=== PATIENT | female | born 1980 | race Hispanic/Latino ===

== ENCOUNTER 2018-04-28 07:45 | Day surgery (SDC) | payer BC ==
[2018-04-22 11:13] VITALS: BMI 51.5
[2018-04-28] MEDS ORDERED: Iohexol 240 (50 ml) ONE (09:11)
[2018-04-28] MEDS ORDERED: Bupivacaine 0.5% 50 ML IJ ONE (09:11)
--- NOTE | 2018-04-28 09:16 | RAD ---
Date of service: 04/28/2018 HISTORY: PRE-OP COMPARISON: No prior. FINDINGS: LUNGS: No active pulmonary disease. PLEURA: No significant pleural effusion identified, no pneumothorax apparent. CARDIOVASCULAR: Normal. OSSEOUS STRUCTURES: No significant abnormalities. VISUALIZED UPPER ABDOMEN: Normal. OTHER FINDINGS: None. IMPRESSION: No active disease.
[2018-04-28] MEDS ORDERED: Propofol 10 mg/ml Inj (20 ML) ONE (09:54)
[2018-04-28] MEDS ORDERED: Midazolam 2 MG/2 ML VIAL ONE (09:55)
[2018-04-28] MEDS ORDERED: Rocuronium 10 mg/ml (5 ml) ONE (09:59)
[2018-04-28] MEDS ORDERED: HYDROmorphone 1 mg/ml ISec IVP PRN (11:00)
[2018-04-28] MEDS ORDERED: Lactated Ringer's 1,000 ML IV SCH (11:00)
[2018-04-28] MEDS ORDERED: Neostigmine Methylsulfate 3mg/3ml Syringe IV ONE (11:03)
[2018-04-28] MEDS ORDERED: Glycopyrrolate 0.2 mg/ml (2ml vial) ONE (11:04)
[2018-04-28] MEDS ORDERED: Oxycodone/Acetaminophen 5/325 mg Tab PO PRN (11:34)
--- NOTE | 2018-04-28 11:37 | PCM.SURG1 ---
Surgeon's Initial Post Op Note - Surgeon's Notes Surgeon: Dr. Wharton [employer] Supervisor: Dr. Crisostomo PGY3, Juan MS3 Type of Anesthesia: General Endo Anesthesia Administered By: Dr. Alicia Pre-Operative Diagnosis: Symptomatic Cholelithiasis Operative Findings: See opertaive dictation Post-Operative Diagnosis: Symptomatic Cholelithiasis Operation Performed: Laparoscopic Cholecystectomy Specimen/Specimens Removed: Gallbladder Estimated Blood Loss: EBL {In ML}: 5 Blood Products Given: N/A Drains Used: No Drains Post-Op Condition: Good Date of Surgery/Procedure: 04/28/18 Time of Surgery/Procedure: 11:36
[2018-04-28] MEDS ORDERED: HYDROmorphone 1 mg/ml ISec ONE (11:40)
[2018-04-28] MEDS ORDERED: HYDROmorphone 1 mg/ml ISec IVP STA (11:53)
--- NOTE | 2018-04-28 14:41 | CARD ---
APPROVED REPORT Date of service: 04/28/2018 EKG Measurement Heart [id number] <Conclusion> Normal sinus rhythm with sinus arrhythmia Moderate voltage criteria for LVH, may be normal variant Borderline ECG
[2018-04-28 15:30] VITALS: BP 136/87; PULSE 79; RESP 18; TEMP 98.9; O2SAT 99
--- NOTE | 2018-04-28 20:31 | OP ---
PROCEDURE DATE: 04/28/2018 PREOPERATIVE DIAGNOSES: Chronic cholecystitis and cholelithiasis. POSTOPERATIVE DIAGNOSES: Chronic cholecystitis and cholelithiasis. PROCEDURE PERFORMED: Laparoscopic cholecystectomy with attempted intraoperative cholangiogram. SURGEON: Jonel Wharton MD QUILT STUFFER: Shalom Crisostomo DO TYPE OF ANESTHESIA: General endotracheal anesthesia. ANESTHESIOLOGIST: Dr. Alicia. ESTIMATED BLOOD LOSS: Minimal. SPECIMEN: Gallbladder with stones. INDICATIONS: The patient is a 37-year-old female with history of recurrent right upper quadrant abdominal pain and cholelithiasis and was scheduled for laparoscopic cholecystectomy. DESCRIPTION OF PROCEDURE: The patient was brought to the operating room and placed on the operating table in a supine position. The patient was connected to the EKG, blood pressure, and pulse oximetry monitors. The patient then underwent general endotracheal anesthesia, and was prepped and draped in the usual sterile fashion. First, standard time-out procedure took place and everybody in the room agreed as to the patient's identity, diagnoses, and procedures to be performed. Using 2 towel clips, the anterior abdominal wall was elevated and a Veress needle was inserted through the small incision superior to the umbilicus. Once pneumoperitoneum was obtained, a 12 mm trocar was inserted through that incision and careful evaluation of the abdominal cavity revealed the presence of slightly distended gallbladder with some omental adhesions. A second 5 mm trocar was inserted through the subxiphoid position and carefully the gallbladder was elevated and grabbed by the infundibulum. Careful dissection took place in order to expose the cystic duct and cystic artery, which were directly behind it. Once this was completed, the cystic duct was clipped proximally and a small incision was made on the side of it. Multiple attempts of placing cholangiocatheter into the cystic duct were made; however, due to tiny size of the cystic duct, we were unable to place the catheter into the duct successfully and therefore aborted the procedure. At this point, we will proceed with clipping the cystic artery and transecting it and carefully taking down the gallbladder using electrocautery from its liver bed. Once completely detached from the liver, it was placed in an EndoCatch bag and removed through the periumbilical incision. The incision had to be slightly extended in order to accommodate the large size of the stone within it. Once the stone in the gallbladder was removed, the pneumoperitoneum was reinstated and the entire right upper quadrant was copiously irrigated with saline. All the irrigant fluid was suctioned out and there was excellent hemostasis noted. The pneumoperitoneum was now released and trocars removed, and the wound was closed using 0 Vicryl for the fascia, 3-0 Vicryl for subcutaneous tissue, and 4-0 Monocryl for skin. A sterile Dermabond dressing was applied to the wound. The patient tolerated the procedure well and there were no complications. The patient was awakened and transferred to the recovery room for further observation. Jonel Wharton MD MTDD
== END 2018-04-28 16:15 | disposition home or self-care (01) ==
LOC: SDS 07:45
PROVIDERS: ATTEND General Practice
DX: K80.10 Calculus of gallbladder with chronic cholecystitis without obstruction (principal)
CPT/HCPCS: 47562; 71045; 84703; 88304; 93005; J0690; J1170; J2001; J2250; J2405; J2704; J2710; J3010; J7120 ×2; Q9966